=== PATIENT | male | born 1955 | race Caucasian/White ===

== ENCOUNTER 2023-02-19 15:52 | Outpatient (REF) | payer MEDICAID, SELFPAY ==
[2023-02-19 17:42] LABS: MANUAL DIFF FLAG NO
[2023-02-19 17:43] LABS: Appearance Urine Clear; Color Urine Yellow; Glucose Urine UA Negative (Negative); Leukocyte Esterase Urine Trace (Negative); Nitrite Urine Negative (Negative); Specific Gravity - Urine 1.015 (1.005-1.025); UMIC TRIGGER UA YES; Urine Blood Negative (Negative); Urine Ketones Negative (Negative); Urine Protein Negative (Neg-Trace)
[2023-02-19 17:53] LABS: Basophils Absolute Auto 0.1 X10*3/uL (0.0-0.2); Basophils Percent Auto 0.6 % (0-2); Eosinophils Absolute Auto 0.3 X10*3/uL (0.0-0.4); Eosinophils Percent Auto 3.4 % (0-4); Hematocrit 37.7 % (42.0-52.0); Hemoglobin 12.6 g/dl (14.0-18.0); Imm Gran Abs Auto 0.03 X10*3/uL (0.00-0.03); Imm Gran Pct Auto 0.4 % (0.0-0.4); Immature Retic Fraction 5.4 % (2.3-13.4); Lymphocytes Absolute Auto 1.1 X10*3/uL (1.2-4.9); Mean Corpuscular HGB Conc 33.4 g/dl (31.0-36.0); Mean Corpuscular Hemoglobin 32.9 pg (27.0-33.0); Mean Corpuscular Volume 98.4 fL (80.0-98.0); Mean Platelet Volume 9.2 fL (9.4-12.4); Monocytes Absolute Auto 0.6 X10*3/uL (0.1-1.2); Monocytes Percent Auto 7.8 % (2-11); Neutrophils Absolute Auto 6.1 x10*3/uL (2.0-8.3); Neutrophils Percent Auto 74.8 % (45-73); Platelet Count 298 X10*3/uL (160-400); Red Blood Count 3.83 X10*6/uL (4.60-5.80); Red Cell Distribution Width 12.4 % (11.0-16.0); Retic HGB Equivalent 36.4 pg (30.0-35.0); Reticulocyte Percent 1.3 % (0.5-1.8); White Blood Count 8.2 X10*3/uL (4.8-10.8)
[2023-02-19 17:59] LABS: Bacteria Urine Trace (None Seen); Hyaline Casts Urine 0-2 /LPF (0-2); Squamous Epithelial Cell Urine 0-2 /HPF (0-2); WBC Urine 0-5 /HPF (0-5)
[2023-02-19 18:07] LABS: Iron 69 mcg/dL (45-160); Percent Iron Saturation 30 % (15-50); Total Iron Binding Capacity 231 mcg/dL (228-428); Unsaturated Iron Binding 162 ug/dL
[2023-02-19 18:18] LABS: Prostate Specific Antigen 5.29 ng/mL (<0.05-4.0)
[2023-02-19 18:22] LABS: Ferritin 45 ng/mL (20-250)
== END 2023-02-19 15:53 | disposition home or self-care (01) ==
LOC: HO.CHCLDS 15:52
PROVIDERS: Visit Provider Internal Medicine
DX: R30.0 Dysuria (principal); R31.29 Other microscopic hematuria
CPT/HCPCS: 36415; 81001; 82728; 83540; 84153; 85025; 85045

== ENCOUNTER 2023-02-27 08:08 | Outpatient (REF) | payer MEDICAID, SELFPAY ==
[2023-02-28 15:24] LABS: Adenovirus F 40/41 Not Detected (Not Detect.); Astrovirus Not Detected (Not Detect.); Campylobacter Not Detected (Not Detect.); Cryptosporidium Not Detected (Not Detect.); Cyclospora cayetanensis Not Detected (Not Detect.); E. coli EAEC Not Detected (Not Detect.); E. coli EPEC Not Detected (Not Detect.); E. coli ETEC Not Detected (Not Detect.); E. coli STEC Not Detected (Not Detect.); Entamoeba histolytica Not Detected (Not Detect.); Giardia lamblia Not Detected (Not Detect.); Norovirus GI/GII Not Detected (Not Detect.); Plesiomonas shigelloides Not Detected (Not Detect.); Rotavirus A Not Detected (Not Detect.); Salmonella Not Detected (Not Detect.); Sapovirus Not Detected (Not Detect.); Shigella sp./EIEC Not Detected (Not Detect.); Vibrio Not Detected (Not Detect.); Vibrio Cholerae Not Detected (Not Detect.); Yersinia enterocolitica Not Detected (Not Detect.)
== END 2023-02-27 08:09 | disposition home or self-care (01) ==
LOC: HO.CHCLNP 08:08
PROVIDERS: Visit Provider Internal Medicine
DX: K59.1 Functional diarrhea (principal)
CPT/HCPCS: 87177; 87209; 87507

== ENCOUNTER 2023-07-30 15:54 | Outpatient (REF) | payer MEDICARE, MEDICAID, SELFPAY ==
[2023-07-30 17:40] LABS: Lithium 0.42 mmol/L (0.60-1.20)
== END 2023-07-30 15:55 | disposition home or self-care (01) ==
LOC: HO.CHCLDS 15:54
PROVIDERS: Visit Provider Internal Medicine
DX: F31.78 Bipolar disorder, in full remission, most recent episode mixed (principal); Z79.899 Other long term (current) drug therapy
CPT/HCPCS: 36415; 80178

== ENCOUNTER 2023-08-06 15:22 | Outpatient (REF) | payer MEDICARE, MEDICAID, SELFPAY ==
[2023-08-06 16:14] LABS: MANUAL DIFF FLAG NO
[2023-08-06 16:17] LABS: Basophils Percent Auto 0.3 % (0-2); Eosinophils Absolute Auto 0.3 X10*3/uL (0.0-0.4); Eosinophils Percent Auto 2.1 % (0-4); Hematocrit 34.1 % (42.0-52.0); Hemoglobin 11.4 g/dl (14.0-18.0); Imm Gran Abs Auto 0.06 X10*3/uL (0.00-0.03); Imm Gran Pct Auto 0.5 % (0.0-0.4); Lymphocytes Absolute Auto 0.8 X10*3/uL (1.2-4.9); Lymphocytes Percent Auto 6.9 % (20-40); Mean Corpuscular HGB Conc 33.4 g/dl (31.0-36.0); Mean Corpuscular Hemoglobin 31.8 pg (27.0-33.0); Mean Platelet Volume 8.9 fL (9.4-12.4); Monocytes Percent Auto 8.3 % (2-11); Neutrophils Absolute Auto 9.7 x10*3/uL (2.0-8.3); Neutrophils Percent Auto 81.9 % (45-73); Platelet Count 290 X10*3/uL (160-400); Red Blood Count 3.59 X10*6/uL (4.60-5.80); Red Cell Distribution Width 13.2 % (11.0-16.0); White Blood Count 11.9 X10*3/uL (4.8-10.8)
[2023-08-06 17:36] LABS: Anion Gap 10 (12-20); Blood Urea Nitrogen 13 mg/dL (9-16); Carbon Dioxide 26 mmol/L (22-29); Chloride 104 mmol/L (96-108); Estimated Glomerular Filt Rate > 60; Glucose Random 71 mg/dL (60-115); Potassium 3.6 mmol/L (3.3-5.1); Sodium 136 mmol/L (135-145)
[2023-08-06 17:46] LABS: Lithium 0.43 mmol/L (0.60-1.20)
[2023-08-06 17:48] LABS: Free T4 (Free Thyroxine) 0.84 ng/dL (0.71-1.85); Thyroid Stimulating Hormone 2.35 uIU/mL (0.32-4.0)
== END 2023-08-06 15:23 | disposition home or self-care (01) ==
LOC: HO.HHCL 15:22
PROVIDERS: Visit Provider Clinical Nurse Specialist Psychiatric/Mental Health, Child & Adolescent
DX: Z79.899 Other long term (current) drug therapy (principal)
CPT/HCPCS: 36415; 80048; 80178; 84439; 84443; 85025

== ENCOUNTER 2024-01-25 14:01 | Outpatient (REF) | payer MEDICARE, MEDICAID, SELFPAY | END 2024-01-25 14:02 | disposition home or self-care (01) | LOC: HO.HAP 14:01 | PROVIDERS: Visit Provider Internal Medicine | DX: Z46.1 Encounter for fitting and adjustment of hearing aid (principal); H90.3 Sensorineural hearing loss, bilateral | CPT/HCPCS: 92591 ==

== ENCOUNTER 2024-02-01 14:03 | Outpatient (REF) | payer MEDICARE, MEDICAID, SELFPAY | END 2024-02-01 14:04 | disposition home or self-care (01) | LOC: HO.HAP 14:03 | PROVIDERS: Visit Provider Internal Medicine | DX: Z46.1 Encounter for fitting and adjustment of hearing aid (principal); H90.3 Sensorineural hearing loss, bilateral | CPT/HCPCS: V5011; V5020; V5160; V5261; V5275 ==

== ENCOUNTER 2024-02-19 12:36 | Outpatient (REF) | payer MEDICARE, MEDICAID, SELFPAY | END 2024-02-19 12:37 | disposition home or self-care (01) | LOC: HO.HAP 12:36 | PROVIDERS: Visit Provider Internal Medicine | DX: Z46.1 Encounter for fitting and adjustment of hearing aid (principal); H90.3 Sensorineural hearing loss, bilateral | CPT/HCPCS: V5264 ==

== ENCOUNTER 2024-04-12 14:08 | Outpatient (REF) | payer MEDICARE, MEDICAID, SELFPAY | END 2024-04-12 14:09 | disposition home or self-care (01) | LOC: HO.HAP 14:08 | PROVIDERS: Visit Provider Internal Medicine | DX: Z13.89 Encounter for screening for other disorder (principal) ==

== ENCOUNTER 2024-05-24 11:04 | Outpatient (REF) | payer MEDICARE, MEDICAID, SELFPAY ==
--- OUTSIDE RECORDS SUMMARY | 2024-05-24 12:18 | XMS_ITS | Clinical Summary ---
Author Organization [employer] Address [address] [place] [address] [address] [place] [address] Care Team Providers Care Pillowcase Folder Name Role Phone Jorge Wiley MD Primary Care Provider [phone] Allergies No known active allergies Medications loperamide (Imodium) 2 MG capsuleIndicati ons:Functional diarrhea TAKE 1-2 CAPS BY MOUTH IN MORNING, NOON, EVENING, & BEDTIME NEEDED FOR DIARRHEA FOR UP TO 10 DAYS 30 capsule 3 03/23/20 23 Active acetaminophen (Tylenol) 325 MG tablet TAKE 2 TABS EVERY 4 HOURS NEEDED FOR MILD PAIN OR TEMP GREATER THAN 100.5 MAX 4000MG/DAY 07/16/19 24 Active lithium 300 MG capsule Take 1 capsule by mouth 2 times daily. 07/07/19 24 Active Multiple Vitamins-Minera ls (Multivitamin-M inerals) tablet Take 1 tablet by mouth in the morning. 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 30 tablet 11 07/30/19 24 Active clopidogrel (Plavix) 75 MG tabletIndicatio ns:Cerebrovascu lar accident (CVA) due to other mechanism (CMS/HCC),Carot id artery stenosis without cerebral infarction, right,Carotid artery stenosis without cerebral infarction, left TAKE 1 TABLET (75 MG) BY MOUTH IN THE MORNING 90 tablet 3 11/11/19 24 Active ferrous gluconate (Fergon) 324 (37.5 Fe) MG tabletIndicatio ns:Iron deficiency anemia, unspecified TAKE 1 TABLET BY MOUTH DAILY WITH BREAKFAST 90 tablet 1 01/04/20 24 Active tamsulosin (Flomax) 0.4 MG 24 hr capsuleIndicati ons:Dysuria TAKE 1 CAPSULE BY MOUTH EVERY DAY 90 capsule 3 02/25/20 24 Active Aspirin Low Dose 81 MG EC tabletIndicatio ns:Cerebrovascu lar accident (CVA) due to other mechanism (CMS/HCC),Carot id artery stenosis without cerebral infarction, right,Carotid artery stenosis without cerebral infarction, left TAKE 1 TABLET (81 MG) BY MOUTH IN THE MORNING 90 tablet 3 05/02/19 25 Active Aspirin Low Dose 81 MG EC tabletIndicatio ns:Cerebrovascu lar accident (CVA) due to other mechanism (CMS/HCC),Carot id artery stenosis without cerebral infarction, right,Carotid artery stenosis without cerebral infarction, left Take 1 tablet (81 mg) by mouth in the morning. 30 tablet 11 07/30/19 24 025 Discontinued Active Problems Problem Noted Date Diagnosed Date Head and neck cancer 11/23/2019 02/06/2023 Benign prostatic hyperplasia 06/28/2019 Bipolar disorder 08/01/2015 02/06/2023 Chronic obstructive lung disease 08/01/2015 02/06/2023 Encounters Date Type Department Care Team Description 05/05/2024 Refill [facility] [address] [place] [address] Jorge Wiley MD Iron deficiency anemia, unspecified 05/01/2024 Refill [facility] [address] [place] [address] Jorge Wiley MD Cerebrovascular accident (CVA) due to other mechanism (CMS/HCC); Carotid artery stenosis without cerebral infarction, right; Carotid artery stenosis without cerebral infarction, left 02/25/2024 Refill [facility] [address] [place] [address] Jorge Wiley MD Dysuria from Last 3 Months Immunizations Name Administration Dates Next Due Influenza High-dose Quadrivalent Preservative Fr ee 02/12/2023 Social History Tobacco Use Types Packs/Day Years Used Date Smoking Tobacco: Every Day Cigarettes Smokeless Tobacco: Never Tobacco Cessation:Ready to Q uit: Not Asked; Counseling Given: Not Answered Depression Answer Date Recorded Patient Health Questionnaire-9 Score 3 02/19/2023 Patient Health Questionnaire-9 Score 3 02/19/2023 Last PHQ-9: Questionnaire Data Not on file 1 Housing Stability Answer Date Recorded What is your housing situation today? I have binh ramey 02/19/[address] you li ve. Do you have problems with any of the following? None of the above 02/19/2023 Food Insecurity Answer Date Recorded Within the past 12 months, y ou worried that your food would run out before you got money to buy more: Never True 02/19/2023 Within the past 12 months,th e food you bought just didn't last and you didn't have enough money to get more: Never True Transportation Answer Date Recorded In the past 12 months, has l ack of transportation kept you from medical appts, meetings, work or from getting things needed for daily living? No 02/19/2023 Utilities Answer Date Recorded In the past 12 months, has t he electric, gas, oil or water company threatened to shut off services in your home? No 02/19/2023 Depression Answer Date Recorded Patient Health Questionnaire-2 Score 2 02/19/2023 Sex and Gender Information Value Date Recorded Sex Assigned at Male 02/24/2022 10:29 AM EDT Legal Sex Male 10:29 AM EDT Gender Identity Male 02/24/2022 10:29 AM EDT Sexual Orientation Don't know 02/24/2022 10 :29 AM EDT Last Filed Vital Signs Vital Sign Reading Time Taken Comments Blood Pressure 135/81 07/30/2023 2:41 PM EDT Pulse 67 07/30/2023 2:41 PM EDT Temperature 36.3 ??C (97.3 ??F) 07/30/2023 2:41 PM ED T Respiratory Rate 19 07/30/2023 2:41 PM EDT Oxygen Saturation 99% 07/30/2023 2:41 PM EDT Inhaled Oxygen Concentration - - Weight 48.5 kg (107 lb) 07/30/2023 2:41 PM EDT Height 159.4 cm (5' 2.75 ) 07/30/2023 2:41 PM ED T Body Mass Index 19.11 07/30/2023 2:41 PM EDT Plan of Treatment Health Maintenance Due Date Last Done Comments CT Colonography 1956 Colonoscopy 1956 Colorectal Cancer Screening 1956 FIT DNA/Cologuard 1956 FIT 1956 FOBT 1956 Sigmoidoscopy 1956 Pneumococcal Vaccine: 65+ Years (1 of 2 - PCV) 1962 Alcohol/Substance Use Screening 1968 DTaP/Tdap/Td Vaccines (1 - Tdap) 09/17/1975 RSV Patients and Patients Aged 60 years or older (1 - Risk 60-74 years 1-dose series) 2016 Zoster Vaccines (2 of 3) 05/07/2017 03/12/2017 COVID-19 Vaccine (2 - season) 2023 10/14/2020 Influenza Vaccine (#1) 2023 , 03/25/2022, 02/09/2021, Additional history exists Depression Screening 02/20/2024 02/19/2023, 02/20/20 23 SDOH Screening 02/20/2024 02/19/2023 Tobacco Screening 07/02/2024 07/03/2023 Lipid Panel 01/28/2027 01/28/2022 Hepatitis C Screening Completed 01/28/2022 HIB Vaccines Aged Out No longer eligi ble based on patient's age to complete this topic HPV Vaccines Aged Out No longer eligi ble based on patient's age to complete this topic Hepatitis A Vaccines Aged Out No long er eligible based on patient's age to complete this topic Hepatitis B Vaccines Aged Out No long er eligible based on patient's age to complete this topic IPV Vaccines Aged Out No longer eligi ble based on patient's age to complete this topic Meningococcal Vaccine Aged Out No cristy vargas eligible based on patient's age to complete this topic RSV under 20 months Aged Out No longe r eligible based on patient's age to complete this topic Rotavirus Vaccines Aged Out No longer eligible based on patient's age to complete this topic Procedures Procedure Name Priority Date/Time Associated Diagnosis Comments ZZZ HISTORICAL HEPATITIS C AB W/REFL TO HCV RNA, QN, PCR Routine 01/28/2022 9:08 AM EDT LIPID PANEL, STANDARD Routine 01/28/2022 9:08 AM EDT from Last 3 Months or Most Recently Relevant to Health Maintenance Results * HEPATITIS C AB W/REFL TO HCV RNA, QN, PCR (01/28/2022 9:08 AM EDT) HEPATITIS C ANTIBODY NON-REACTI VE NON-REACT CARLOS CONVERTED LEGACY LABS INDEX <0.02 <1.00 CONVERTED LEGACY LABS Comment: ?? HCV antibody was non-reactive. There is no laboratory ?? evidence of HCV infection. ?? In most cases, no further action is required. However, if recent HCV exposure is suspected, a test for HCV RNA (test code 12371) is suggested. ?? For additional information please refer to http://[employer].The Runthrough/faq/SFA04h8 (This link is being provided for informational/ educational purposes only.) ?? 01/28/2022 9:08 AM EDT us Jorge Wiley MD HISTORICAL/NON ORDERABLE POOJA CHENG Final Result CONVERTED LEGACY LABS * LIPID PANEL, STANDARD (01/28/2022 9:08 AM EDT) Chol/HDLC Ratio 2.7 <5.0 (calc) CONVERTED LEGACY LABS Cholesterol, Total 170 <200 mg/dL CONVERTED LEGACY LABS HDL Cholesterol 62 > OR = 40 mg/dL CONVERTED LEGACY LABS LDL Cholesterol 91 mg/dL (calc) CONVERTED LEGACY LABS Comment: Reference range: <100 ?? Desirable range <100 mg/dL for primary prevention; ?? <70 mg/dL for patients with CHD or diabetic patients ?? with > or = 2 CHD risk factors. ?? LDL-C is now calculated using the Drake ?? calculation, which is a validated novel method providing ?? better accuracy than the Friedewald equation in the ?? estimation of LDL-C. ?? Benjamin PARRISH et al. YESI. 2013;310(19): 2917-7705 ?? (http://education.[employer].Intellikine/faq/LCI783) Non-HDL Cholesterol 108 <130 mg/dL (calc) CONVERTED LEGACY LABS Comment: For patients with diabetes plus 1 major ASCVD risk ?? factor, treating to a non-HDL-C goal of <100 mg/dL ?? (LDL-C of <70 mg/dL) is considered a therapeutic ?? option. Triglycerides 81 <150 mg/dL CONVE RTED LEGACY LABS 01/28/2022 9:08 AM EDT us Jorge Wiley MD LAB BLOOD ORDERABLES Final Result CONVERTED LEGACY LABS from Last 3 Months or Most Recently Relevant to Health Maintenance Insurance [facility]LY [facility] MEDICARE Care Teams Pillowcase Folder Relationship Specialty Start Date End Date Jorge Wiley MD [address] [place] [address] LAURENT Bravo [id number] PCP - General Internal Medicine 08/01/15
--- OUTSIDE RECORDS SUMMARY | 2024-05-24 12:18 | XMS_ITS | Encounter Summary ---
Author Organization [employer] Address [address] [facility] [address] [place] [address] Care Team Providers Care Medical Operations Supervisor Name Role Phone Jorge Wiley MD Primary Care Provider [phone] Encounter Details Date Type Department Care Team (Late st Contact Info) Description 04/03/2022 Orders Only [facility] [address] [place], [place] [phone] Jorge Wiley MD [address] [place], [place] [phone] Microcytic anemia (Primary Dx) Social History Tobacco Use Types Packs/Day Years Used Date Smoking Tobacco: Never Assessed Sex and Gender Information Value Date Recorded Sex Assigned at Male 02/24/2022 10:29 AM EDT Legal Sex Male 10:29 AM EDT Gender Identity Male 02/24/2022 10:29 AM EDT Sexual Orientation Don't know 02/24/2022 10 :29 AM EDT documented as of this encounter Plan of Treatment Scheduled Orders Name Type Priority Associated Diagnoses Orde r Schedule Iron, TIBC And Ferritin Panel Lab Routine Microcytic anemia Expected: 04/03/2022 (Approximate), Expires: 04/03/2023 documented as of this encounter Visit Diagnoses Diagnosis Microcytic anemia- Primary Unspecified iron deficiency anemia documented in this encounter Care Teams Medical Operations Supervisor Relationship Specialty Start Date End Date Jorge Wiley MD [address] [place], [place] [phone] PCP - General Internal Medicine 08/01/15 documented as of this encounter
--- OUTSIDE RECORDS SUMMARY | 2024-05-24 12:18 | XMS_ITS | Encounter Summary ---
Author Organization [employer] Address [address] [facility] [address] [place] [address] Care Team Providers Care Die Stamper Name Role Phone Jorge Wiley MD Primary Care Provider Reason for Visit * Reason Onset Date Comments Call Back Request 08/07/2023 Encounter Details Date Type Department Care Team ([facility] Contact Info) Description 08/07/2023 Telephone [facility] [address] [place] [address] Jorge Wiley MD [address] [place], [place] [phone] Call Back Request Social History Tobacco Use Types Packs/Day Years Used Date Smoking Tobacco: Every Day Cigarettes Smokeless Tobacco: Never Depression Answer Date Recorded Patient Health Questionnaire-9 [...] AM EDT documented as of this encounter Miscellaneous Notes * Telephone Encounter - Wing Madhavi RN - 08/07/2023 2:18 PM EDT Tc to [facility]. She stated she was trying to fax something back for clarification but the fax number provided was incorrect. But stated she is now all set since someone called her this morning and helped her out. * Telephone Encounter - Estefania Mckenzie - 08/07/2023 8:42 AM EDT Tc from [facility] with [facility] requesting to speak with a nurse or [place] in regards to labs faxed. States it is urgent. Please contact rocky at [phone] documented in this encounter Plan of Treatment Not on file documented as of this encounter Visit Diagnoses Not on filedocumented in this encounter Additional Health Concerns Assessment Noted Time PHQ-9 Depression Total Score: 3 02/20/20 23 3:12 PM EDT documented as of this encounter Care Teams Die Stamper Relationship Specialty Start Date End Date Jorge Wiley MD [address] [place] [address] LAUR[place] Bravo [id number] PCP - General Internal Medicine 08/01/15 documented as of this encounter
--- OUTSIDE RECORDS SUMMARY | 2024-05-24 12:18 | XMS_ITS | Encounter Summary ---
Author Organization [employer] Address [address] [facility] [address] [place] [address] Care Team Providers Care Fiberglass Autobody Repairer Name Role Phone Jorge Wiley MD Primary Care Provider Encounter Details Date Type Department Care Team (Late st Contact Info) Description 01/12/2024 Orders Only [facility] [address] [place], [place] [phone] ProviderRandall MD Social History Tobacco Use Types Packs/Day Years [...] as of this encounter Plan of Treatment Not on file documented as of this encounter Procedures Procedure Name Priority Date/Time Associated Diagnosis Comments FLU VACCINE, HIGH DOSE SEASONAL, PRESERVATIVE FREE Routine 01/10/2024 3:00 PM EDT SARS-COV-2 IGG/IGM RAPID Routine 024 2:57 PM EDT documented in this encounter Results * Flu vaccine, high dose seasonal, preservative free (01/10/2024 3:00 PM EDT) Historical Provider IMMUNIZATION ORDERABLES F inal Result * SARS-CoV-2 IgG/IgM Rapid (01/10/2024 2:57 PM EDT) Blood Venous blood specimen / Unknown us Historical Provider LAB BLOOD ORDERABLES Judy l Result documented in this encounter Visit Diagnoses Not on filedocumented in this encounter Additional Health Concerns Assessment Noted Time PHQ-9 Depression Total Score: 3 02/20/20 23 3:12 PM EDT documented as of this encounter Care Teams Fiberglass Autobody Repairer Relationship Specialty Start Date End Date Jorge Wiley MD [address] [place] [id number] PCP - General Internal Medicine 08/01/15 documented as of this encounter
--- OUTSIDE RECORDS SUMMARY | 2024-05-24 12:18 | XMS_ITS | Encounter Summary ---
Author Organization [employer] Address [address] [facility] [address] [place] [address] Care Team Providers Care Mining Plant Operator Name Role Phone Jorge Wiley MD Primary Care Provider Encounter Details Date Type Department Care Team (Late st Contact Info) Description 02/23/2023 Orders Only [facility] [address] [place], [place] [phone] Jorge Wiley MD [address] [place], [place] [phone] Benign prostatic hyperplasia with incomplete bladder emptying (Primary Dx); Other microscopic hematuria; Microcytic anemia; Functional diarrhea Social History Tobacco Use Types Packs/Day Years [...] Type Priority Associated Diagnoses Orde r Schedule CBC auto differential Lab Routine Microcytic anemia Expected: 02/23/2023 (Approximate), Expires: 02/24/2024 documented as of this encounter Visit Diagnoses Diagnosis Benign prostatic hyperplasia with incomplete bladder emptying- Primary Other microscopic hematuria Microcytic anemia Unspecified iron deficiency anemia Functional diarrhea documented in this encounter Additional Health Concerns Assessment Noted Time PHQ-9 Depression Total Score: 3 02/20/20 23 3:12 PM EDT documented as of this encounter Care Teams Mining Plant Operator Relationship Specialty Start Date End Date Jorge Wiley MD [address] [place] [id number] PCP - General Internal Medicine 08/01/15 documented as of this encounter
--- OUTSIDE RECORDS SUMMARY | 2024-05-24 12:18 | XMS_ITS | Encounter Summary ---
Author Organization [facility] [employer] Address [address] [place] [address] [address] [place] [address] Care Team Providers Care Flatwork Folder Name Role Phone Jorge Wiley MD Primary Care Provider Encounter Details Date Type Department Care Team (Late st Contact Info) Description 02/13/2023 Abstract [employer] [facility] [address] [place], [place] [phone] Jorge Wiley MD [address] [place], [place] [phone] Social History Tobacco Use Types Packs/Day Years Used Date Smoking Tobacco: Every Day Cigarettes Smokeless Tobacco: Never Sex and Gender Information Value Date Recorded Sex Assigned at Male 02/24/2022 10:29 AM EDT Legal Sex Male 10:29 AM EDT Gender Identity Male 02/24/2022 10:29 AM EDT Sexual Orientation Don't know 02/24/2022 10 :29 AM EDT documented as of this encounter Plan of Treatment Not on file documented as of this encounter Visit Diagnoses Not on filedocumented in this encounter Care Teams Flatwork Folder Relationship Specialty Start Date End Date Jorge Wiley MD [address] [place] [address] PCP - General Internal Medicine 08/01/15 documented as of this encounter
--- OUTSIDE RECORDS SUMMARY | 2024-05-24 12:18 | XMS_ITS | Data Portability ---
Author Organization [place] - [facility] Formerly [facility], Allergy Address [address] [address] Care Team Providers Care Room Service Associate Name Role Phone HEIDIIVÁN TOMLINSON Primary Care Provider [phone] Assessment Encounter Date Assessment Date Assessment LastModified by Organization Details LastModified Time 01/15/2024 01/15/2024 Recommendations: Follow up with referring provider. Amplification, pending medical clearance. [email or web address] Not available 01/15/2024 14:06:00 01/15/2024 01/15/2024 68-year-old male presents for evaluation of hearing loss. On examination right EAC is normal to inspection as his TM. On the left side there is squamous impaction removed from the inferior canal. There is an inferior canal divot with good epithelialization and no granulation. TM normal to inspection. Given concerns about hearing loss would recommend updated hearing test today. There is sensorineural hearing loss bilaterally. He would be an excellent candidate for amplification. He was given a copy of his hearing test and medical clearance for bilateral aids. Was also provided with [facility] provider sheet. Follow-up in 6 months for ear cleaning. Not available 01/15/2024 15:04:04 Plan of Treatment Reminders Order Date Submit Date Provider Last Modified By Organization Details Last Modified Time Details Appointments Establish ed 15 2024 01:15P Deborah QUIÑONEZ PA-C Not available Not available Not available Lab None recorded. Referral None recorded. Procedures None recorded. Surgeries None recorded. Imaging None recorded. Medication Orders None recorded. Patient TargetsNo targets recorded. Patient InstructionsNo instructions recorded. Reason for Referral None Reported. Results Created Date Observation Date Name Description Value Unit Range Abnormal Flag Note LastModifiedBy Organization Detail LastModifiedTime 12/17/19 24 05/22/2020 imagi ng/di agnos tic resul t No observ ation record ed. [email or web address] Not Available 12:44:49 12/17/19 24 10/24/2019 imagi ng/di agnos tic resul t No observ ation record ed. [email or web address] Not Available 12:45:04 12/17/1911/01/2019 imagi ng/di agnos tic resul t No observ ation record ed. [email or web address] Not Available 12:45:07 12/17/19 24 11/23/2019 imagi ng/di agnos tic resul t No observ ation record ed. [email or web address] Not Available 12:45:10 12/17/19 24 12/15/2019 imagi ng/di agnos tic resul t No observ ation record ed. [email or web address] Not Available 12:45:33 12/17/19 24 12/22/2019 imagi ng/di agnos tic resul t No observ ation record ed. [email or web address] Not Available 12:45:34 01/18/20 audio gram No observ ation record ed. BARCODE Not Available 2023 16:40:32 Result Notes None recorded. Problems Name Problem SNOMED Code Status Onset Date Resolution Date Notes Provider Name and Address Organization Details Recorded Time Impacted cerumen of bilateral ears 83844959531 41029 Active 2019 Impacted cerumen, bilateral ; Note: Date Diagnosed : 12/13/2019 12:30 PM (H61.23) Not Available [facility] 4 02:49:51 Follow-up visit Active 2020 Encounter for follow-up examinati on after completed treatment for malignant neoplasm; Note: Date Diagnosed : 06/21/2020 9:33 AM (Z08) Not Available [facility] 4 02:49:48 Sensorine ural hearing loss of bilateral ears 802473184 Active 2019 Sensorine ural hearing loss, bilateral ; Note: Date Diagnosed : 12/22/2019 4:02 PM (H90.3) Not Available [facility] 4 02:49:49 Malignant tumor of head and neck 208835836 Active 2019 Malignant neoplasm of head, face and neck; Note: Date Diagnosed : 11/30/2019 11:25 AM (C76.0) Not Available [facility] 4 02:49:49 Otorrhea of left ear 83913661890 36836 Active 2022 Otorrhea, left ear; Note: Date Diagnosed : 01/05/2023 3:29 PM (H92.12) Not Available [facility] 4 02:49:50 Nicotine dependenc e 03091880 Active 2020 Tobacco use disorder, moderate; Note: Date Diagnosed : 06/20/2020 9:38 AM (F17.200) Not Available [facility] 4 02:49:45 History of malignant neoplasm of digestive organ 95382495321 655342 Active 2020 Personal history of malignant neoplasm of other digestive organs; Note: Date Diagnosed : 06/20/2020 9:38 AM (Z85.09) Not Available [facility] 4 02:49:47 Mass of neck 766629924 Active 2019 Localized swelling, mass and lump, neck; Note: Date Diagnosed : 11/30/2019 11:25 AM (R22.1) Not Available [facility] 4 02:49:46 Neck swelling 740222353 Active 2019 Localized swelling, mass and lump, neck; Note: Date Diagnosed : 11/30/2019 11:25 AM (R22.1) Not Available [facility] 4 02:49:46 Deviated nasal septum 409806491 Active 2022 Deviated nasal septum; Note: Date Diagnosed : 10/03/2022 1:33 PM (J34.2) Not Available [facility] 4 02:49:44 Stomatiti s 22638133 Active 2020 Oral thrush; Note: Date Diagnosed : 06/20/2020 9:38 AM (B37.0) Not Available [facility] 4 02:49:46 Candidias is of mouth 82844091 Active 2020 Oral thrush; Note: Date Diagnosed : 06/20/2020 9:38 AM (B37.0) Not Available [facility] 02:49:46 Impacted cerumen in left ear 74737205689 07577 Active 2023 DALTON QUIÑONEZ PA-C [address],[place] [address], [place], [address] , [facility] - [facility] 4 14:05:38 Disorder of external ear 23442223 Active 2023 DALTON QUIÑONEZ PA-C [address],[place] [address], [place], [address] , [facility] - [facility] 4 14:06:06 Problem Notes None recorded. Procedures Surgical History Date Name Laterality Status Provider Name and Address Organization Details Recorded Time 4 Comp Audio with Tymps (46057 & 84032) completed CLOTILDE MATHEW [address],[place] [address], [place], [address], [facility] - [facility] 01/15/2024 14:05:04 Debridement of Ear canal left completed DALTON QUIÑONEZ PA-C [address] [facility] [place] [address], [place], [address], [facility] - [facility] 01/15/2024 14:04:23 Imaging Results Imaging Date Name Status LastModified by Organiz ation Details LastModified Time 05/22/2020 imaging/diagno stic result completed Information not available 12/17/2023 12:44:49 10/24/2019 imaging/diagno stic result completed Information not available 12/17/2023 12:45:04 11/01/2019 imaging/diagno stic result completed Information not available 12/17/2023 12:45:07 11/23/2019 imaging/diagno stic result completed Information not available 12/17/2023 12:45:10 12/15/2019 imaging/diagno stic result completed Information not available 12/17/2023 12:45:33 12/22/2019 imaging/diagno stic result completed Information not available 12/17/2023 12:45:34 01/18/2024 audiogram completed BARCODE Information no t available 01/18/2024 16:40:32 Procedure Notes None recorded. Medical Equipment None Reported. Medications Name Sig Start Date Stop Date Status Note LastModified by Organization Details LastModified Time cyclobenz aprine 10 mg tablet 2019 active Medicati on ID: [id number] D uration Value: 5 Brand Name: cycloben zaprine Send Method: E-Prescr ibed Sub s Allowed: subs OK Speci al Instruct ion: TAKE 1 TABLET BY MOUTH EVERY 8 HOURS NEEDED FOR MUSCLE SPASM Me dication GenericN jaylon: cycloben zaprine Not Available Not Available Not Available clotrimaz ole 10 mg chandler 1 chandler 2020 active Medicati on ID: [id number] D uration Value: 7 Brand Name: clotrima zole Sen d Method: E-Prescr ibed Sub s Allowed: subs OK Medic ationGen ericName : clotrima zole Not Available Not Available Not Available atorvasta tin 80 mg tablet TAKE 1 TABLET BY MOUTH AT BEDTIME active Not Available Not Available No t Available acetamino phen 325 mg tablet TAKE 2 TABS EVERY 4 HOURS NEEDED FOR MILD PAIN OR TEMP GREATER THAN 100.5 MAX 4000MG/D AY 01/14 completed Not Available Not Available Not Available doxycycli ne hyclate 100 mg capsule TAKE 1 CAPSULE BY MOUTH TWICE A DAY FOR 7 DAYS 01/14 completed Not Available Not Available Not Available loperamid e 2 mg capsule TAKE 1-2 CAPS BY MOUTH IN MORNING, NOON, EVENING, & BEDTIME NEEDED FOR DIARRHEA FOR UP TO 10 DAYS active Not Available Not Available No t Available clopidogr el 75 mg tablet TAKE 1 TABLET (75 MG) BY MOUTH IN THE MORNING active Not Available Not Available No t Available aspirin 81 mg tablet,de layed release TAKE 1 TABLET (81 MG) BY MOUTH IN THE MORNING 01/14 completed Not Available Not Available Not Available tamsulosi n 0.4 mg capsule TAKE 1 CAPSULE BY MOUTH EVERY DAY active Not Available Not Available No t Available lithium carbonate 300 mg capsule TAKE 2 CAPSULES BY MOUTH TWICE A DAY active Not Available Not Available No t Available Banophen 25 mg tablet 2019 active Medicati on ID: [id number] D uration Value: 3 Brand Name: Banophen Send Method: E-Prescr ibed Sub s Allowed: subs OK Speci al Instruct ion: TAKE 2 TABLETS BY MOUTH EVERY 8 HOURS NEEDED FOR SLEEP Me dication GenericN jaylon: Banophen Not Available Not Available Not Available omeprazol e 20 mg capsule,d elayed release 2019 active Medicati on ID: [id number] D uration Value: 30 Brand Name: omeprazo le Send Method: E-Prescr ibed Sub s Allowed: subs OK Speci al Instruct ion: TAKE 1 CAPSULE BY MOUTH TWICE A DAY BEFORE A MEAL Med icationG enericNa me: omeprazo le Not Available Not Available Not Available naproxen 500 mg tablet 2019 active Medicati on ID: [id number] D uration Value: 8 Brand Name: naproxen Send Method: E-Prescr ibed Sub s Allowed: subs OK Speci al Instruct ion: TAKE 1 TABLET BY MOUTH EVERY 12 HOURS NEEDED FOR PAIN Med icationG enericNa me: naproxen Not Available Not Available Not Available Ciprodex 0.3 %-0.1 % ear drops,hipolito pension APPLY 4 DROP INTO LEFT EAR TWICE A DAY 01/14 completed Not Available Not Available Not Available ferrous gluconate 324 mg (38 mg iron) tablet TAKE 1 TABLET BY MOUTH WITH BREAKFAS T. 01/14 completed Not Available Not Available Not Available ferrous gluconate 324 mg (37.5 mg iron) tablet TAKE 1 TABLET BY MOUTH DAILY WITH BREAKFAS T active Not Available Not Available No t Available multivita min with minerals- ferrous fumarate 15 mg iron tablet TAKE 1 TABLET BY MOUTH EVERY DAY active Not Available Not Available No t Available Vitals Date Recorded Body height Body mass index (BMI) Body weight Provider Name and Address Organization Details Last Updated DateTime 01/15/2024 160.02 cm 18.1 kg/m2 19143.42 g Sia Barksdale [place] - [facility] 01/15/2024 13:21:07 Social History None recorded. Functional Status None recorded. Mental Status None recorded. Family History Nothing Reported. Medical History No medical history recorded. Past Encounters Encounter ID Performer Location Encounter Start Date Encounter Closed Date Diagnosis/Indication Diagnosis SNOMED-CT Code Diagnosis ICD10 Code Diagnosis Note [id number] YOSSI ESPAÑA MD [facility] [address] [place] [address] 01/15/2024 13:09:17 01/15/2024 14:33:31 Impacted cerumen in left ear 3355109996 447295 H61.22 Disorder o f external ear 93118137 H61.92 History of malignant neoplasm of digestive organ 5533126967 9455605 Z85.09 [id number] CLOTILDE MATHEW [facility] [address] [place] [address] 01/15/2024 14:02:49 01/18/2024 07:06:56 Sensorineural hearing loss of bilateral ears 076101774 H90.3 Audiologic al evaluation results: Right ear: {{Normal sloping Mi ld* Modera te Moderat maryam-severe Severe Pr ofound Nor mal auditory thresholds }} to {{mild mod erate mode rately-sev ere severe profound* with}} {{sensorin eural hearing loss with* cond uctive hearing loss with mixed hearing loss with}} {{excellen t good dru r poor* no t measurable }} word recognitio n. Left ear: {{Normal sloping Mi ld* Modera te Moderat maryam-severe Severe Pr ofound Nor mal auditory thresholds }} to {{mild mod erate mode rately-sev ere severe profound* with}} {{sensorin eural hearing loss with* cond uctive hearing loss with mixed hearing loss with}} {{excellen t* good fa ir poor no t measurable }} word recognitio n. Tympanomet ry: Right Ear:{{Type A* Type As Type Ad Type C Type C, shallow & rounded Ty pe B Type B with large volume Cou ld not maintain a hermetic seal}} Left Ear:{{Type A* Type As Type Ad Type C Type C, shallow & rounded Ty pe B Type B with large volume Cou ld not maintain a hermetic seal}} Health Concerns Section Related Observation LastModified by Organization Detai ls LastModified Time None Recorded Concern Status LastModified by Organization Details LastModified Time None Recorded Advance Directives Directive None Recorded Payers Encounter Date Sequence Insurance Name Policy Number Policy Fink Covered Member ID Fink Member ID Guarantor Name 01/15/2024 1 [place] [employer] Francisco J Patel [id number] Francisco J Patel 01/15/2024 2 [place] Francisco J Patel [id number] Francisco J Patel 01/15/2024 1 [place] [employer] Francisco J Patel [id number] Francisco J Patel 01/15/2024 2 [place] Francisco J Patel [id number] Francisco J Patel Notes Date Note Type Note Provider Name and Address Organization Details Recorded Time 01/15/2024 text/html 68-year-old male with 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 He had a PET scan last year which was clear and no further imaging recommended by radiation oncology. He presents today for a hearing test. He has a history of sensorineural hearing loss but feels his hearing is getting worse. YOSSI ESPAÑA MD [address] [place] [address], [address], [place] - [facility] 01/15/2024 16:42:39 01/15/2024 text/html Audiological Evaluation HPIReported bypatient.Hearing loss perceived:hearing loss in both ears: no differences noted between ears Onset:gradual Use of amplification or other hearing devices:none (does not use amplification) CLOTILDE MATHEW [address], [address], [place] - [facility] 01/15/2024 14:11:04
--- OUTSIDE RECORDS SUMMARY | 2024-05-24 12:18 | XMS_ITS | Encounter Summary ---
Author Organization [facility] Address [address] [place] [address] Care Team Providers Care Rural Mail Contractor Name Role Phone Jorge Wiley MD Primary Care Provider [phone] Encounter Details Date Type Department Care Team Description 12/12/2019 Nurse Only [facility] Oncology Services [address] [place] [address] Abner Umana RN Social History Tobacco Use Types Packs/Day Years Used Date Smoking Tobacco: Some Days Cigarettes 1 45 Cigars Smokeless Tobacco: Never Comments: plans on quitting today Alcohol Use Standard Drinks/Week Comments No 0 (1 standard drink = 0.6 oz pur e alcohol) Sex and Gender Information Value Date Recorded Sex Assigned at Not on file Gender Identity Not on file Sexual Orientation Not on file Job Start Date Occupation Industry Not on file Not on file Not on file documented as of this encounter Progress Notes * Abner Umana RN - 12/12/2019 11:51 AM EDT Appointment for g-tube placement is booked for 12/16/2019 arrival at 8am procedure is at 9am . Spokewith robert Gaspar she is aware of all instructions prior to procedure. She reports a Covid test was done on Thursday for [facility] ENT prior to biopsy tomorrow. She stated it will be a hard for the family to redo another Covid test as Mr. 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 Will do a rapid test on day of procedure per IR orders sent to [facility]-op. documented in this encounter Plan of Treatment Not on file documented as of this encounter Visit Diagnoses Not on filedocumented in this encounter Care Teams Rural Mail Contractor Relationship Specialty Start Date End Date Jorge Wiley MD [address] [place] [address] PCP - General Internal Medicine 04/08/22 documented as of this encounter
--- OUTSIDE RECORDS SUMMARY | 2024-05-24 12:19 | XMS_ITS | Encounter Summary ---
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/HCC); Carotid artery stenosis without cerebral infarction, right; Carotid artery stenosis without cerebral infarction, left Social History Tobacco Use Types Packs/Day Years [...] as of this encounter Visit Diagnoses Diagnosis 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
--- OUTSIDE RECORDS SUMMARY | 2024-05-24 12:19 | XMS_ITS | Encounter Summary ---
Author Organization [employer] Address [address] [facility] [address] [place] [address] Care Team Providers Care Physician Primary Care Sports Medicine Name Role Phone Jorge Wiley MD Primary Care Provider Reason for Visit * Reason Onset Date Comments FYI 07/13/2023 Encounter Details Date Type Department Care Team ([facility] st Contact Info) Description 07/13/2023 Telephone [facility] MEDICINE [address] [place], [place] [phone] Jorge Wiley MD [address] [place], [place] [id number] FYI Social History Tobacco Use Types Packs/Day Years [...] Telephone Encounter - Wing Madhavi RN - 07/13/2023 4:00 PM EDT Tc to pt regarding previous message. Unable to reach pt, mailbox was full so no message could be left. * Telephone Encounter - Maykel Hicks - 07/13/2023 3:24 PM EDT Tc from the patients sister Blanca calling to inform the provider that the patient is not able to come to the appt on 07/12 due to having a mini stroke and it effected the patients right arm documented in this encounter Plan of Treatment Not on file documented as of this encounter Visit Diagnoses Not on filedocumented in this encounter Additional Health Concerns Assessment Noted Time PHQ-9 Depression Total Score: 3 02/20/20 23 3:12 PM EDT documented as of this encounter Care Teams Physician Primary Care Sports Medicine Relationship Specialty Start Date End Date Jorge Wiley MD [address] [place] [address] PCP - General Internal Medicine 08/01/15 documented as of this encounter
--- OUTSIDE RECORDS SUMMARY | 2024-05-24 12:19 | XMS_ITS | Encounter Summary ---
Author Organization [facility] Address [address] [place] [address] Care Team Providers Care Business Technology Analyst Name Role Phone Jorge Wiley MD Primary Care Provider [phone] Encounter Details Date Type Department Care Team Description 05/25/2020 Nurse Only [facility] Oncology Services [address] [place] [address] Abner Umana RN Social History Tobacco Use [...] file Not on file Not on file COVID-19 Exposure Response Date Recorded In the last month, have you been in contact with someone who was confirmed or suspected to have Coronavirus / COVID-19? No / Unsure 05/25/2020 2:11 PM EST documented as of this encounter Progress Notes * Abner Umana RN - 05/25/2020 3:55 PM EST Patient saw Dr. Mattson today, ok to remove the g-tube. Balloon deflated but tube appears stuck, not small amount of blood at stoma patient reported it painful when pulling. Called IR and OR tech came to see patient, she attempted to remove the tube but was not successful, Dr. Walter came to deptand removed the tube no bleeding noted at the end of the procedure. documented in this encounter Plan of Treatment Not on file documented as of this encounter Visit Diagnoses Not on filedocumented in this encounter Care Teams Business Technology Analyst Relationship Specialty Start Date End Date Jorge Wiley MD [address] [place] [address] PCP - General Internal Medicine 04/08/22 documented as of this encounter
--- OUTSIDE RECORDS SUMMARY | 2024-05-24 12:19 | XMS_ITS | Encounter Summary ---
Author Organization [employer] Address [address] [facility] [address]t [place] [address] Care Team Providers Care Accordion Tuner Name Role Phone Jorge Wiley MD Primary Care Provider Reason for Visit * Reason Comments Med Refill Encounter Details Date Type Department Care Team ([facility] st Contact Info) Description 05/05/2024 Refill [facility] CHC MED & PEDS [address] [place], [place] [phone] Jorge Wiley MD [address] [place], [place] [phone] Iron deficiency anemia, unspecified Social History Tobacco Use Types Packs/Day Years [...] as of this encounter Visit Diagnoses Diagnosis Iron deficiency anemia, unspecified documented in this encounter Additional Health Concerns Assessment Noted Time PHQ-9 Depression Total Score: 3 02/20/20 23 3:12 PM EDT documented as of this encounter Care Teams Accordion Tuner Relationship Specialty Start Date End Date Jorge Wiley MD [address] [place] [address] PCP - General Internal Medicine 08/01/15 documented as of this encounter
--- OUTSIDE RECORDS SUMMARY | 2024-05-24 12:19 | XMS_ITS | Clinical Summary ---
Author Organization [facility] Address [address] [place] [address] Care Team Providers Care Service Desk Technician Name Role Phone Jorge Wiley MD Primary Care Provider [phone] Allergies No known active allergies Medications Medication Sig Dispensed Refills Start Date End Date Status lithium 600 MG capsule Take 600 mg by mouth 2 (two) times a day with meals. 0 Active tamsulosin (FLOMAX) 0.4 MG CAPS Take 1 capsule (0.4 mg total) by mouth daily. 0 Active Active Problems Problem Noted Date Diagnosed Date Head and neck cancer 11/23/2019 Family History Relation Name Status Comments Father Mother Sister Alive Social History Tobacco Use Types Packs/Day Years [...] file Not on file Not on file Last Filed Vital Signs Vital Sign Reading Time Taken Comments Blood Pressure 119/75 04/08/2022 1:46 PM EST Pulse 65 04/08/2022 1:46 PM EST Temperature 37.1 ??C (98.8 ??F) 04/08/2022 1:46 PM ES T Respiratory Rate - - Oxygen Saturation 100% 04/08/2022 1:46 PM EST Inhaled Oxygen Concentration - - Weight 48.4 kg (106 lb 12.8 oz) 04/08/2022 1:46 PM EST Height 160 cm (5' 3 ) 04/08/2022 1:46 PM EST Body Mass Index 18.92 04/08/2022 1:46 PM EST Plan of Treatment Health Maintenance Due Date Last Done Comments Hepatitis C Screening 1955 Lung Cancer Screening (Low D ose CT) 1956 COVID-19 Vaccine (#1) 1961 Pneumococcal Vaccine (1 of 2 - PCV) 1962 Depression Screening 1968 Preventative Health Evaluation 1974 DTap / Tdap / Td (1 - Tdap) 09/17/1975 Shingrix-Zoster Vaccine (1 of 2) 09/17/1975 Colon Cancer Screening (Colonoscopy) 2001 Fall Risk Assessment 2021 Influenza Vaccine (#1) 2023 02/12/2023 RSV Adult > 60+ Yrs or Pregn ant (1 - 1-dose 75+ series) 09/17/2031 Hepatitis B Vaccines Aged Out No long er eligible based on patient's age to complete this topic RSV Ped < 20 months Aged Out No longe r eligible based on patient's age to complete this topic Care Teams Service Desk Technician Relationship Specialty Start Date End Date Jorge Wiley MD [address] [place] [address] PCP - General Internal Medicine 04/08/22
== END 2024-05-24 11:05 | disposition home or self-care (01) ==
LOC: HO.HAP 11:04
PROVIDERS: Visit Provider Internal Medicine
DX: Z13.89 Encounter for screening for other disorder (principal)

== ENCOUNTER 2024-08-23 14:02 | Outpatient (REF) | payer MEDICARE, MEDICAID, SELFPAY ==
--- OUTSIDE RECORDS SUMMARY | 2024-08-23 16:17 | XMS_ITS | Clinical Summary ---
Author Organization [employer] Address [address] [place] [address] 7t [place] [address] Care Team Providers Care Leakage Tester Name Role Phone Jorge Wiley MD Primary Care Provider [phone] Allergies No known active allergies Medications loperamide [...] mouth in the morning. 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 (CMS/HCC),Carot id artery stenosis without cerebral infarction, right,Carotid artery stenosis without cerebral infarction, left TAKE 1 TABLET (75 MG) BY MOUTH IN THE MORNING 90 tablet 3 11/11/19 24 Active tamsulosin (Flomax) 0.4 MG 24 [...] MORNING 90 tablet 3 05/02/19 25 Active ferrous gluconate (Fergon) 324 (37.5 Fe) MG tabletIndicatio ns:Iron deficiency anemia, unspecified TAKE 1 TABLET BY MOUTH DAILY WITH BREAKFAST 90 tablet 1 08/02/19 25 Active atorvastatin (Lipitor) 80 MG tabletIndicatio ns:Cerebrovascu lar accident (CVA) due to other mechanism (CMS/HCC),Carot id artery stenosis without cerebral infarction, right,Carotid artery stenosis without cerebral infarction, left TAKE 1 TABLET BY MOUTH AT BEDTIME 90 tablet 3 08/11/19 25 Active atorvastatin (Lipitor) 80 MG tabletIndicatio ns:Cerebrovascu lar accident (CVA) due to other mechanism (CMS/HCC),Carot id artery stenosis without cerebral infarction, right,Carotid artery stenosis without cerebral infarction, left Take 1 tablet (80 mg) by mouth at bedtime. 30 tablet 11 07/30/19 24 025 Discontinued ferrous gluconate (Fergon) 324 (37.5 Fe) MG tabletIndicatio ns:Iron deficiency anemia, unspecified TAKE 1 TABLET BY MOUTH DAILY WITH BREAKFAST 90 tablet 1 01/04/20 24 025 Discontinued Active Problems Problem Noted Date Diagnosed Date Head and neck cancer 11/23/2019 02/06/2023 Benign prostatic hyperplasia 06/28/2019 Bipolar disorder 08/01/2015 02/06/2023 Chronic obstructive lung disease 08/01/2015 02/06/2023 Encounters Date Type Department Care Team Description 08/10/2024 Refill [facility] [address] [place] [address] Jorge Wiley MD Cerebrovascular accident (CVA) due to other mechanism (CMS/HCC); Carotid artery stenosis without cerebral infarction, right; Carotid artery stenosis without cerebral infarction, left 07/28/2024 Refill [facility] [address] [place] [address] Jorge Wiley MD Iron deficiency anemia, unspecified from Last 3 Months Immunizations Name Administration [...] 1956 FIT 1956 FOBT 1956 Sigmoidoscopy 1956 Alcohol/Substance Use Screening 1968 DTaP/Tdap/Td Vaccines (1 - Tdap) 09/17/1975 Pneumococcal Vaccine: 50+ Years (1 of 2 - PCV) 09/17/1975 RSV Patients and Patients Aged 60 [...] a test for HCV RNA (test code 24132) is suggested. ?? For additional information please refer to http://Duck[employer].shopp/faq/DLO01g0 (This link is being provided for informational/ [...] ?? Benjamin PARRISH et al. YESI. 2013;310(19): 0221-9287 ?? (http://education.Tapestry.Inventergy/faq/TFQ832) Non-HDL Cholesterol 108 <130 mg/dL (calc) CONVERTED [...] Most Recently Relevant to Health Maintenance [facility] Care Teams Leakage Tester Relationship Specialty Start Date End Date Jorge Wiley MD [address] [place] [address] [place] [address] PCP - General Internal Medicine 08/01/15
--- OUTSIDE RECORDS SUMMARY | 2024-08-23 16:17 | XMS_ITS | Encounter Summary ---
Author Organization [facility] Address [address] [place] [address] Care Team Providers Care Weather Teacher Name Role Phone Jorge Wiley MD Primary Care Provider [phone] Encounter Details Date Type Department Care Team Description 05/25/2020 Nurse Only [facility] Oncology Services [address] [place] [address] Abner Umana RN Social History Tobacco Use [...] on filedocumented in this encounter Care Teams Weather Teacher Relationship Specialty Start Date End Date Jorge Wiley MD [address] [place] [phone] PCP - General Internal Medicine 04/08/22 documented as of this encounter
--- OUTSIDE RECORDS SUMMARY | 2024-08-23 16:17 | XMS_ITS | Data Portability ---
Author Organization [place] [facility] Address [address] [address] Care Team Providers Care Retrimmer Name Role Phone IVÁN TAYLOR Primary Care Provider Assessment Encounter Date Assessment Date Assessment LastModified [...] for bilateral aids. Was also provided with [facility] provider sheet. Follow-up in 6 months for ear cleaning. [email or web address] Not available 01/15/2024 15:04:04 Plan of Treatment Reminders Order Date Submit Date Provider Last Modified By Organization Details Last Modified Time Details Appointments None record ed. Lab None record ed. Referral None record ed. Procedures None record ed. Surgeries None record ed. Imaging None record ed. Medication Orders None record ed. Patient TargetsNo targets recorded. Patient InstructionsNo instructions [...] ation record ed. [email or web address] Not Available 12:45:04 12/17/19 24 11/01/2019 imagi ng/di agnos tic resul t No [...] Recorded Time Impacted cerumen of bilateral ears 54164392759 73172 Active 2019 Impacted cerumen, bilateral ; Note: Date Diagnosed : 12/13/2019 12:30 PM (H61.23) Not Available [facility] 4 02:49:51 Follow-up visit Active 2020 Encounter for follow-up examinati on after completed treatment for malignant neoplasm; Note: Date Diagnosed : 06/21/2020 9:33 AM (Z08) Not Available [facility] 4 02:49:48 Sensorine ural hearing loss of bilateral ears 894431221 Active 2019 Sensorine ural hearing loss, bilateral ; Note: Date Diagnosed : 12/22/2019 4:02 PM (H90.3) Not Available [facility] 4 02:49:49 Malignant tumor of head and neck 332850445 Active 2019 Malignant neoplasm of head, face and neck; Note: Date Diagnosed : 11/30/2019 11:25 AM (C76.0) Not Available [facility] 4 02:49:49 Otorrhea of left ear 60068430337 83916 Active 2022 Otorrhea, left ear; Note: Date Diagnosed : 01/05/2023 3:29 PM (H92.12) Not Available [facility] 4 02:49:50 Nicotine dependenc e 08511327 Active 2020 Tobacco use disorder, moderate; Note: Date Diagnosed : 06/20/2020 9:38 AM (F17.200) Not Available [facility] 4 02:49:45 History of malignant neoplasm of digestive organ 35029085606 883426 Active 2020 Personal history of malignant neoplasm of other digestive organs; Note: Date Diagnosed : 06/20/2020 9:38 AM (Z85.09) Not Available [facility] 4 02:49:47 Mass of neck 301564551 Active 2019 Localized swelling, mass and lump, neck; Note: Date Diagnosed : 11/30/2019 11:25 AM (R22.1) Not Available [facility] 4 02:49:46 Neck swelling 755445219 Active 2019 Localized swelling, mass and lump, neck; Note: Date Diagnosed : 11/30/2019 11:25 AM (R22.1) Not Available [facility] 4 02:49:46 Deviated nasal septum 083227256 Active 2022 Deviated nasal septum; Note: Date Diagnosed : 10/03/2022 1:33 PM (J34.2) Not Available [facility] 4 02:49:44 Stomatiti s 70152279 Active 2020 Oral thrush; Note: Date Diagnosed : 06/20/2020 9:38 AM (B37.0) Not Available [facility] 4 02:49:46 Candidias is of mouth 90081475 Active 2020 Oral thrush; Note: Date Diagnosed : 06/20/2020 9:38 AM (B37.0) Not Available [facility] 4 02:49:46 Impacted cerumen in left ear 03492408030 29668 Active 2023 DALTON QUIÑONEZ PA-C [address], [facility] [place], [address] , [place] - [facility] 4 14:05:38 Disorder of external ear 18351452 Active 2023 DALTON QUIÑONEZ PA-C [address], [facility] [place], [address] , [facility] - [facility] [place] 4 14:06:06 Problem Notes None recorded. Procedures Surgical History Date Name Laterality Status Provider Name and Address Organization Details Recorded Time 4 Comp Audio with Tymps (55025 & 39650) completed CLOTILDE MATHEW [address],[facility], [place], [address], [place] - [facility] 01/15/2024 14:05:04 Debridement of Ear canal left completed DALTON QUIÑONEZ PA-C [facility], [place], [address], [place] - [facility] 01/15/2024 14:04:23 Imaging Results Imaging Date Name [...] mg tablet 2019 active Medicati on ID: 862426 D uration Value: 5 Brand Name: cycloben zaprine Send Method: E-Prescr ibed Sub s Allowed: subs OK Speci al Instruct ion: TAKE 1 TABLET BY MOUTH EVERY 8 HOURS NEEDED FOR MUSCLE SPASM Me dication GenericN jaylon: cycloben zaprine Not Available Not Available Not Available clotrimaz ole 10 mg chandler 1 chandler 2020 active Medicati on ID: 984244 D uration Value: 7 Brand Name: clotrima [...] (81 MG) BY MOUTH IN THE MORNING active Not Available Not Available No t Available tamsulosi n 0.4 mg capsule TAKE 1 CAPSULE BY MOUTH EVERY DAY active Not Available Not Available No t Available lithium carbonate 300 mg capsule TAKE 2 CAPSULES BY MOUTH TWICE A DAY active Not Available Not Available No t Available Banophen 25 mg tablet 2019 active Medicati on ID: 691700 D uration Value: 3 Brand Name: Banophen Send Method: E-Prescr ibed Sub s Allowed: subs OK Speci al Instruct ion: TAKE 2 TABLETS BY MOUTH EVERY 8 HOURS NEEDED FOR SLEEP Me dication GenericN jaylon: Banophen Not Available Not Available Not Available omeprazol e 20 mg capsule,d elayed release 2019 active Medicati on ID: 455057 D uration Value: 30 Brand Name: omeprazo le Send Method: E-Prescr ibed Sub s Allowed: subs OK Speci al Instruct ion: TAKE 1 CAPSULE BY MOUTH TWICE A DAY BEFORE A MEAL Med icationG enericNa me: omeprazo le Not Available Not Available Not Available naproxen 500 mg tablet 2019 active Medicati on ID: 536529 D uration Value: 8 Brand Name: naproxen [...] Updated DateTime 01/15/2024 160.02 cm 18.1 kg/m2 85025.42 g Sia Barksdale [place] - [facility] 01/15/2024 13:21:07 Social History None recorded. Functional Status None recorded. Mental Status None recorded. Family History Nothing Reported. Medical History No medical history recorded. Past Encounters Encounter ID Performer Location Encounter Start Date Encounter Closed Date Diagnosis/Indication Diagnosis SNOMED-CT Code Diagnosis ICD10 Code Diagnosis Note [id number] YOSSI ESPAÑA MD [facility] [address] [place] [address] 01/15/2024 13:09:17 01/15/2024 14:33:31 Impacted cerumen in left ear 7624172868 191229 H61.22 Disorder o f external ear 66485950 H61.92 History of malignant neoplasm of digestive organ 9362398737 6554659 Z85.09 [id number] CLOTILDE MATHEW [facility] of [address] [address] 01/15/2024 14:02:49 01/18/2024 07:06:56 Sensorineural hearing loss of bilateral ears 316835565 H90.3 Audiologic al evaluation results: Right ear: [...] Guarantor Name 01/15/2024 1 [place] [facility] Francisco J Patel [id number] Francisco J Patel 01/15/2024 2 [place] [facility] Francisco J Patel [id number] Francisco J Patel 01/15/2024 1 [place] [facility] Francisco J Patel [id number] Francisco J Patel 01/15/2024 2 [place] [facility] Francisco J Patel [id number] Francisco J Patel Notes Date Note Type [...] hearing is getting worse. YOSSI ESPAÑA MD [address], [address], [place] - [facility] 01/15/2024 16:42:39 01/15/2024 text/html Audiological Evaluation HPIReported bypatient.Hearing loss perceived:hearing loss in both ears: no differences noted between ears Onset:gradual Use of amplification or other hearing devices:none (does not use amplification) CLOTILDE MATHEW [address], [address], [place] - [facility] 01/15/2024 14:11:04
--- OUTSIDE RECORDS SUMMARY | 2024-08-23 16:17 | XMS_ITS | Encounter Summary ---
Author Organization [employer] Address 75 [facility] 7t [place] [address] Care Team Providers Care Ict Developer Name Role Phone Jorge Wiley MD Primary Care Provider Reason for Visit * Reason Onset Date Comments Call Back Request 08/07/2023 Encounter Details Date Type Department Care Team ([facility] Contact Info) Description 08/07/2023 Telephone [facility] MED & PEDS [address] [place] [address] Jorge Wiley MD [address] [place], [place] [phone] Call Back Request Social History Tobacco Use [...] - 08/07/2023 8:42 AM EDT Tc from [facility] with [facility] requesting to speak with a nurse or [place] in regards to labs faxed. States it is urgent. Please contact rocky at [phone] documented in this encounter Plan of Treatment Not on file documented as of this encounter Visit Diagnoses Not on filedocumented in this encounter Additional Health Concerns Assessment Noted Time PHQ-9 Depression Total Score: 3 02/20/20 23 3:12 PM EDT documented as of this encounter Care Teams Ict Developer Relationship Specialty Start Date End Date Jorge Wiley MD [address] [place] [address] LAURENT Bravo [address] PCP - General Internal Medicine 08/01/15 documented as of this encounter
--- OUTSIDE RECORDS SUMMARY | 2024-08-23 16:17 | XMS_ITS | Encounter Summary ---
Author Organization [facility] [employer] Address [address] [place] [address] 7t [place] [address] Care Team Providers Care Clinical Physician Assistant Name Role Phone Jorge Wiley MD Primary Care Provider [phone] Encounter Details Date Type Department Care Team (Late st Contact Info) Description 02/13/2023 Abstract [facility] [employer] [facility] [address] [place], [place] [phone] Jorge Wiley MD [address] [place], [place] [phone] Social History Tobacco Use Types Packs/Day Years [...] on filedocumented in this encounter Care Teams Clinical Physician Assistant Relationship Specialty Start Date End Date Jorge Wiley MD [address] [place] [address] PCP - General Internal Medicine 08/01/15 documented as of this encounter
--- OUTSIDE RECORDS SUMMARY | 2024-08-23 16:17 | XMS_ITS | Encounter Summary ---
Author Organization [employer] Address [address] [facility] [address] 7t [place] [address] Care Team Providers Care Transportation Specialist Name Role Phone Jorge Wiley MD Primary Care Provider Reason for Visit * Reason Onset Date Comments FYI 07/13/2023 Encounter Details Date Type Department Care Team ([facility] st Contact Info) Description 07/13/[address] [facility] MED[facility] [address] [place], [place] [phone] Jorge Wiley MD [address] [place], [place] [phone] FYI Social History Tobacco Use Types Packs/Day [...] documented as of this encounter Care Teams Transportation Specialist Relationship Specialty Start Date End Date Jorge Wiley MD [address] [place] [address] PCP - General Internal Medicine 08/01/15 documented as of this encounter
--- OUTSIDE RECORDS SUMMARY | 2024-08-23 16:17 | XMS_ITS | Encounter Summary ---
Author Organization [employer] Address 75 [facility] 7t [place] [address] Care Team Providers Care Ferryboat Operator Helper Name Role Phone Jorge Wiley MD Primary Care Provider Encounter Details Date Type Department Care Team (Late st Contact Info) Description 01/12/2024 Orders Only [facility] [address] [place], [place] [phone] ProviderRandall MD Social History Tobacco Use Types [...] documented as of this encounter Care Teams Ferryboat Operator Helper Relationship Specialty Start Date End Date Jorge Wiley MD [address] [place] [address] PCP - General Internal Medicine 08/01/15 documented as of this encounter
--- OUTSIDE RECORDS SUMMARY | 2024-08-23 16:17 | XMS_ITS | Encounter Summary ---
Author Organization [employer] Address 75 [facility] 7t [place] [address] Care Team Providers Care Press Service Reader Name Role Phone Jorge Wiley MD Primary Care Provider [phone] Encounter Details Date Type Department Care Team (Late st Contact Info) Description 04/03/2022 Orders Only [facility] MED[facility] 230 [place], [place] [phone] Jorge Wiley MD 505 [place], [place] [phone] Microcytic anemia (Primary Dx) Social History Tobacco [...] anemia documented in this encounter Care Teams Press Service Reader Relationship Specialty Start Date End Date Jorge Wiley MD 505 [place], [place] [phone] PCP - General Internal Medicine 08/01/15 documented as of this encounter
--- OUTSIDE RECORDS SUMMARY | 2024-08-23 16:17 | XMS_ITS | Encounter Summary ---
Author Organization [employer] Address [address] [facility] 7t [place] [address] Care Team Providers Care Enlisted Advisor Name Role Phone Jorge Wiley MD Primary Care Provider Reason for Visit * Reason Comments Med Refill Encounter Details Date Type Department Care Team ([facility] st Contact Info) Description 05/05/2024 Refill [facility] MED & PEDS 505 [place], [place] [phone] Jorge Wiley MD 505 [place], [place] [phone] Iron deficiency anemia, unspecified Social History Tobacco [...] documented as of this encounter Care Teams Enlisted Advisor Relationship Specialty Start Date End Date Jorge Wiley MD [address] [place] [address] PCP - General Internal Medicine 08/01/15 documented as of this encounter
--- OUTSIDE RECORDS SUMMARY | 2024-08-23 16:17 | XMS_ITS | Clinical Summary ---
Author Organization [facility] Address [address] [place] [address] Care Team Providers Care Hand Baseball Sewer Name Role Phone Jorge Wiley MD Primary Care Provider [phone] Allergies No known active allergies Medications Medication [...] age to complete this topic Care Teams Hand Baseball Sewer Relationship Specialty Start Date End Date Jorge Wiley MD [address] [place] [address] PCP - General Internal Medicine 04/08/22
--- OUTSIDE RECORDS SUMMARY | 2024-08-23 16:17 | XMS_ITS | Encounter Summary ---
Author Organization [employer] Address 75 [facility] 7t [place] [address] Care Team Providers Care Reeling Machine Operator Name Role Phone Jorge Wiley MD Primary Care Provider Encounter Details Date Type Department Care Team (Late st Contact Info) Description 02/23/2023 Orders Only [facility] MED & PEDS 505 [place], [place] [phone] Jorge Wiley MD 505 [place], [place] [phone] Benign prostatic hyperplasia with incomplete bladder emptying [...] documented as of this encounter Care Teams Reeling Machine Operator Relationship Specialty Start Date End Date Jorge Wiley MD [address] [place] [address] PCP - General Internal Medicine 08/01/15 documented as of this encounter
--- OUTSIDE RECORDS SUMMARY | 2024-08-23 16:17 | XMS_ITS | Encounter Summary ---
Author Organization [facility] Address [address] [place] [address] Care Team Providers Care Muffler Installer Name Role Phone Jorge Wiley MD Primary Care Provider [phone] Encounter Details Date Type Department Care Team Description 12/12/2019 Nurse Only [facility] Oncology Services [address] [place] [address] Abner Umana RN Social History Tobacco Use [...] Covid test was done on Thursday for [facility] ENT prior to biopsy tomorrow. She stated it will be a hard for the family to redo another Covid test as Mr. 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 Will do a rapid test on day of procedure per IR orders sent to [facility]. documented in this encounter Plan of Treatment Not on file documented as of this encounter Visit Diagnoses Not on filedocumented in this encounter Care Teams Muffler Installer Relationship Specialty Start Date End Date Jorge Wiley MD [address] [place] [address] PCP - General Internal Medicine 04/08/22 documented as of this encounter
== END 2024-08-23 14:03 | disposition home or self-care (01) ==
LOC: HO.HAP 14:02
PROVIDERS: Visit Provider Internal Medicine
DX: Z13.89 Encounter for screening for other disorder (principal)

== ENCOUNTER 2024-09-14 13:45 | Outpatient (REF) | payer MEDICARE, MEDICAID, SELFPAY ==
--- OUTSIDE RECORDS SUMMARY | 2024-09-14 14:17 | XMS_ITS | Encounter Summary ---
Author Organization [employer] Address 75 [facility] 7t [place] [address] Care Team Providers Care Farm Consultant Name Role Phone Jorge Wiley MD Primary Care Provider [phone] Encounter Details Date Type Department Care Team (Late st Contact Info) Description 01/12/2024 Orders Only [facility] [address] [place], [place] [phone] Provider, MD Randall Social History Tobacco Use Types Packs/Day Years [...] EDT) Blood Venous blood specimen / Unknown Historical Provider LAB BLOOD ORDERABLES Judy l Result documented in this encounter Visit Diagnoses Not on filedocumented in this encounter Additional Health Concerns Assessment Noted Time PHQ-9 Depression Total Score: 3 02/20/20 23 3:12 PM EDT documented as of this encounter Care Teams Farm Consultant Relationship Specialty Start Date End Date Jorge Wiley MD [address] [place] [address] PCP - General Internal Medicine 08/01/15 documented as of this encounter
--- OUTSIDE RECORDS SUMMARY | 2024-09-14 14:17 | XMS_ITS | Encounter Summary ---
Author Organization [employer] Address [address] [facility] 7t [place] [address] Care Team Providers Care Pipe Bending Machine Operator Name Role Phone Jorge Wiley MD Primary Care Provider Encounter Details Date Type Department Care Team (Late st Contact Info) Description 04/03/2022 Orders Only [facility] MEDICINE 230 [place], [place] [phone] Jorge Wiley MD 505 [place], [place] [phone] Microcytic anemia (Primary Dx) Social History Tobacco [...] anemia documented in this encounter Care Teams Pipe Bending Machine Operator Relationship Specialty Start Date End Date Jorge Wiley MD 505 [place] [address] PCP - General Internal Medicine 08/01/15 documented as of this encounter
--- OUTSIDE RECORDS SUMMARY | 2024-09-14 14:17 | XMS_ITS | Clinical Summary ---
Author Organization [employer] Address [address] [facility] 7t [place] [address] Care Team Providers Care Solderer Dipper Name Role Phone Jorge Wiley MD Primary Care Provider Allergies No known active allergies Medications loperamide (Imodium) 2 MG capsuleIndicatio ns:Functional diarrhea TAKE 1-2 CAPS BY MOUTH IN MORNING, NOON, EVENING, & BEDTIME NEEDED FOR DIARRHEA FOR UP TO 10 DAYS 30 capsule 3 3 Active acetaminophen (Tylenol) 325 MG tablet TAKE 2 TABS EVERY 4 HOURS NEEDED FOR MILD PAIN OR TEMP GREATER THAN 100.5 MAX 4000MG/DAY 4 Active lithium 300 MG capsule Take 1 capsule by mouth 2 times daily. 4 Active Multiple Vitamins-Mineral s (Multivitamin-Mi nerals) tablet Take 1 tablet by mouth in the morning. 4 Active clopidogrel (Plavix) 75 MG tabletIndication s:Cerebrovascula r accident (CVA) due to other mechanism (CMS/HCC),Caroti d artery stenosis without cerebral infarction, right,Carotid artery stenosis without cerebral infarction, left TAKE 1 TABLET (75 MG) BY MOUTH IN THE MORNING 90 tablet 3 4 Active tamsulosin (Flomax) 0.4 MG 24 hr capsuleIndicatio ns:Dysuria TAKE 1 CAPSULE BY MOUTH EVERY DAY 90 capsule 3 4 Active Aspirin Low Dose 81 MG EC tabletIndication s:Cerebrovascula r accident (CVA) due to other mechanism (CMS/HCC),Caroti d artery stenosis without cerebral infarction, right,Carotid artery stenosis without cerebral infarction, left TAKE 1 TABLET (81 MG) BY MOUTH IN THE MORNING 90 tablet 3 5 Active ferrous gluconate (Fergon) 324 (37.5 Fe) MG tabletIndication s:Iron deficiency anemia, unspecified TAKE 1 TABLET BY MOUTH DAILY WITH BREAKFAST 90 tablet 1 5 Active atorvastatin (Lipitor) 80 MG tabletIndication s:Cerebrovascula r accident (CVA) due to other mechanism (CMS/HCC),Caroti d artery stenosis without cerebral infarction, right,Carotid artery stenosis without cerebral infarction, left TAKE 1 TABLET BY MOUTH AT BEDTIME 90 tablet 3 5 Active Active Problems Problem Noted Date Diagnosed Date Head and neck cancer 11/23/2019 02/06/2023 Benign prostatic hyperplasia 06/28/2019 Bipolar disorder 08/01/2015 02/06/2023 Chronic obstructive lung disease 08/01/2015 02/06/2023 Encounters Date Type Department Care Team Description 08/10/2024 Refill [facility] MED & PEDS [address] [place] [address] Jorge Wiley MD Cerebrovascular accident (CVA) due to other mechanism (CMS/HCC); Carotid artery stenosis without cerebral infarction, right; Carotid artery stenosis without cerebral infarction, left 07/28/2024 Refill [facility] MED & PEDS [address] [place] [address] Jorge Wiley MD Iron deficiency anemia, unspecified from Last 3 Months Immunizations Immunization Administration Dates Next Due Influenza High-dose Quadrivalent [...] season) 2023 10/14/2020 Influenza Vaccine (#1) 2023 3, 03/25/2022, 02/09/2021, Additional history exists Depression Screening 02/20/2024 02/19/2023, 02/20/20 SDOH Screening 02/20/2024 02/19/2023 Tobacco Screening 07/02/2024 [...] patient's age to complete this topic Meningococcal B Vaccine Aged Out No l onger eligible based on patient's age to complete [...] a test for HCV RNA (test code 33838) is suggested. ?? For additional information please refer to http://Lvgou.com.[employer]/faq/ZAZ91n6 (This link is being provided for informational/ [...] ?? LDL-C is now calculated using the Benjamin-Lyon ?? calculation, which is a validated novel method providing ?? better accuracy than the Friedewald equation in the ?? estimation of LDL-C. ?? Benjamin PARRISH et al. YESI. 2013;310(19): 2777-2351 ?? (http://education.[employer]/faq/NVK608) Non-HDL Cholesterol 108 <130 mg/dL (calc) CONVERTED [facility]GAC[facility] Comment: For patients with diabetes plus 1 major ASCVD risk ?? factor, treating to a non-HDL-C goal of <100 mg/dL ?? (LDL-C of <70 mg/dL) is considered a therapeutic ?? option. Triglycerides 81 <150 mg/dL CONVE RTED [facility]GAC[facility] 01/28/2022 9:08 AM EDT Jorge Wiley MD LAB BLOOD ORDERABLES Final Result CONVERTED [facility]GAC[facility] from Last 3 Months or Most Recently Relevant to Health Maintenance Insurance [facility] MEDICARE * Guarantor: Francisco J Patel Account Type Relation to Patient Date of Phone Billing Address Personal/Family Self [address] [facility] [place] Care Teams Solderer Dipper Relationship Specialty Start Date End Date Jorge Wiley MD [address] [place], [place] [address] PCP - General Internal Medicine 08/01/15
--- OUTSIDE RECORDS SUMMARY | 2024-09-14 14:17 | XMS_ITS | Encounter Summary ---
Author Organization [employer] Address [address] [facility] 7t [place] [address] Care Team Providers Care Customer Service Consultant Name Role Phone Jorge Wiley MD Primary Care Provider [phone] Reason for Visit * Reason Comments Med Refill Encounter Details Date Type Department Care Team ([facility] st Contact Info) Description 05/05/2024 Refill [facility] MED & PEDS [address] [place], [place] [phone] Jorge Wiley MD [address] [place], [place] [phone] Iron deficiency anemia, unspecified Social History Tobacco [...] documented as of this encounter Care Teams Customer Service Consultant Relationship Specialty Start Date End Date Jorge Wiley MD [address] [place] [address] PCP - General Internal Medicine 08/01/15 documented as of this encounter
--- OUTSIDE RECORDS SUMMARY | 2024-09-14 14:17 | XMS_ITS | Encounter Summary ---
Author Organization [employer] Address [address] [facility] 7t [place] [address] Care Team Providers Care President Sales And Marketing Name Role Phone Jorge Wiley MD Primary Care Provider Encounter Details Date Type Department Care Team (Late st Contact Info) Description 02/23/2023 Orders Only [facility] MED & PEDS [address] [place], [place] [phone] Jorge Wiley MD [address] [place] [address] Benign prostatic hyperplasia with incomplete bladder emptying [...] documented as of this encounter Care Teams President Sales And Marketing Relationship Specialty Start Date End Date Jorge Wiley MD [address] [place] [address] PCP - General Internal Medicine 08/01/15 documented as of this encounter
--- OUTSIDE RECORDS SUMMARY | 2024-09-14 14:17 | XMS_ITS | Data Portability ---
Author Organization [place] [facility], Allergy Address [address] [address] Care Team Providers Care Abatement Worker Name Role Phone IVÁN TAYLOR Primary Care [...] for bilateral aids. Was also provided with [facility] provider sheet. Follow-up in 6 months for [...] Recorded Time Impacted cerumen of bilateral ears 67577008909 72540 Active 2019 Impacted cerumen, bilateral ; Note: Date Diagnosed : 12/13/2019 12:30 PM (H61.23) Not Available [facility] 4 02:49:51 Follow-up visit Active 2020 Encounter for follow-up examinati on after completed treatment for malignant neoplasm; Note: Date Diagnosed : 06/21/2020 9:33 AM (Z08) Not Available [facility] 4 02:49:48 Sensorine ural hearing loss of bilateral ears 691844539 Active 2019 Sensorine ural hearing loss, bilateral ; Note: Date Diagnosed : 12/22/2019 4:02 PM (H90.3) Not Available [facility] 4 02:49:49 Malignant tumor of head and neck 444007901 Active 2019 Malignant neoplasm of head, face and neck; Note: Date Diagnosed : 11/30/2019 11:25 AM (C76.0) Not Available [facility] 4 02:49:49 Otorrhea of left ear 91053583836 03985 Active 2022 Otorrhea, left ear; Note: Date Diagnosed : 01/05/2023 3:29 PM (H92.12) Not Available [facility] 4 02:49:50 Nicotine dependenc e 15889340 Active 2020 Tobacco use disorder, moderate; Note: Date Diagnosed : 06/20/2020 9:38 AM (F17.200) Not Available [facility] 4 02:49:45 History of malignant neoplasm of digestive organ 02951131632 294863 Active 2020 Personal history of malignant neoplasm of other digestive organs; Note: Date Diagnosed : 06/20/2020 9:38 AM (Z85.09) Not Available [facility] 4 02:49:47 Mass of neck 789946358 Active 2019 Localized swelling, mass and lump, neck; Note: Date Diagnosed : 11/30/2019 11:25 AM (R22.1) Not Available [facility] 4 02:49:46 Neck swelling 501334051 Active 2019 Localized swelling, mass and lump, neck; Note: Date Diagnosed : 11/30/2019 11:25 AM (R22.1) Not Available [facility] 4 02:49:46 Deviated nasal septum 468723489 Active 2022 Deviated nasal septum; Note: Date Diagnosed : 10/03/2022 1:33 PM (J34.2) Not Available [facility] 4 02:49:44 Stomatiti s 12632957 Active 2020 Oral thrush; Note: Date Diagnosed : 06/20/2020 9:38 AM (B37.0) Not Available [facility] 4 02:49:46 Candidias is of mouth 16442440 Active 2020 Oral thrush; Note: Date Diagnosed : 06/20/2020 9:38 AM (B37.0) Not Available [facility] 4 02:49:46 Impacted cerumen in left ear 07263186298 37832 Active 2023 DALTON QUIÑONEZ PA-C [address], [place], [address] , [place] - [facility] 4 14:05:38 Disorder of external ear 82750575 Active 2023 DALTON QUIÑONEZ PA-C [address], [facility] [place], [address] , [place] - [facility] [place] 4 14:06:06 Problem Notes None recorded. Procedures Surgical History Date Name Laterality Status Provider Name and Address Organization Details Recorded Time 4 Comp Audio with Tymps - 11107 & 37923 completed CLOTILDE MATHEW [address], [place], [address], [place] - [facility] 01/15/2024 14:05:04 Debridement of Ear canal left completed DALTON QUIÑONEZ PA-C [address],[facility], [place], [address], [place] - [facility] [place] 01/15/2024 14:04:23 Imaging Results Imaging Date Name [...] mg tablet 2019 active Medicati on ID: 837940 D uration Value: 5 Brand Name: cycloben zaprine Send Method: E-Prescr ibed Sub s Allowed: subs OK Speci al Instruct ion: TAKE 1 TABLET BY MOUTH EVERY 8 HOURS NEEDED FOR MUSCLE SPASM Me dication GenericN jaylon: cycloben zaprine Not Available Not Available Not Available clotrimaz ole 10 mg chandler 1 chandler 2020 active Medicati on ID: 832378 D uration Value: 7 Brand Name: clotrima [...] mg tablet 2019 active Medicati on ID: 469638 D uration Value: 3 Brand Name: Banophen Send Method: E-Prescr ibed Sub s Allowed: subs OK Speci al Instruct ion: TAKE 2 TABLETS BY MOUTH EVERY 8 HOURS NEEDED FOR SLEEP Me dication GenericN jaylon: Banophen Not Available Not Available Not Available omeprazol e 20 mg capsule,d elayed release 2019 active Medicati on ID: 882337 D uration Value: 30 Brand Name: omeprazo le Send Method: E-Prescr ibed Sub s Allowed: subs OK Speci al Instruct ion: TAKE 1 CAPSULE BY MOUTH TWICE A DAY BEFORE A MEAL Med icationG enericNa me: omeprazo le Not Available Not Available Not Available naproxen 500 mg tablet 2019 active Medicati on ID: 460786 D uration Value: 8 Brand Name: naproxen [...] Updated DateTime 01/15/2024 160.02 cm 18.1 kg/m2 11608.42 g Sia Barksdale [place] - [facility] 01/15/2024 13:21:07 Social History None recorded. Functional Status None recorded. Mental Status None recorded. Family History Nothing Reported. Medical History No medical history recorded. Past Encounters Encounter ID Performer Location Encounter Start Date Encounter Closed Date Diagnosis/Indication Diagnosis SNOMED-CT Code Diagnosis ICD10 Code Diagnosis Note [id number] DALTON QUIÑONEZ PA-C [facility] [address] [place] [address] 01/15/2024 13:09:17 01/15/2024 14:33:31 Impacted cerumen in left ear 2043429401 909153 H61.22 Disorder o f external ear 29956587 H61.92 History of malignant neoplasm of digestive organ 0619146888 2281126 Z85.09 [id number] CLOTILDE MATHEW [facility] [address] [place] [address] 01/15/2024 14:02:49 01/18/2024 07:06:56 Sensorineural hearing loss of bilateral ears 080608576 H90.3 Audiologic al evaluation results: Right ear: [...] Recorded Advance Directives Directive None Recorded Payers Insurance Date Sequence Insurance Name Policy Number Policy Fink Covered Member ID Fink Member ID Guarantor Name 07/06/2024 1 MEDICARE B-[place]: [facility] Francisco J Patel [id number] Francisco J Patel 07/06/2024 2 [place] [facility] Francisco J Patel [id number] Francisco J Patel 12/18/2023 1 [place] [facility] Francisco J Patel [id number] Francisco J Patel Notes Date Note Type [...] hearing is getting worse. YOSSI ESPAÑA MD [address] [place] [address], [address], [place] - [facility] 01/15/2024 16:42:39 01/15/2024 text/html Audiological Evaluation HPIReported bypatient.Hearing loss perceived:hearing loss in both ears: no differences noted between ears Onset:gradual Use of amplification or other hearing devices:none (does not use amplification) CLOTILDE MATHEW [address], [address], [facility] - [facility] 01/15/2024 14:11:04
--- OUTSIDE RECORDS SUMMARY | 2024-09-14 14:17 | XMS_ITS | Encounter Summary ---
Author Organization [facility] Address [address] [place] [address] Care Team Providers Care Washer Cutter Name Role Phone Jorge Wiley MD Primary Care Provider [phone] Encounter Details Date Type Department Care Team Description 12/12/2019 Nurse Only [facility] Oncology Services [address] [place] [address] Abner Umana RN Social History Tobacco Use [...] Covid test was done on Thursday for [facility] ENT prior to biopsy tomorrow. She stated it will be a hard for the family to redo another Covid test as Mr. 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 Will do a rapid test on day of procedure per IR orders sent to Per-op. documented in this encounter Plan of Treatment Not on file documented as of this encounter Visit Diagnoses Not on filedocumented in this encounter Care Teams Washer Cutter Relationship Specialty Start Date End Date Jorge Wiley MD [address] [place] [address] PCP - General Internal Medicine 04/08/22 documented as of this encounter
--- OUTSIDE RECORDS SUMMARY | 2024-09-14 14:17 | XMS_ITS | Clinical Summary ---
Author Organization [facility] Address [address] [place] [address] Care Team Providers Care Fur Finisher Name Role Phone Jorge Wiley MD Primary Care Provider [phone] Allergies No known active allergies Medications Medication [...] age to complete this topic Care Teams Fur Finisher Relationship Specialty Start Date End Date Jorge Wiley MD [address] [place] [address] PCP - General Internal Medicine 04/08/22
--- OUTSIDE RECORDS SUMMARY | 2024-09-14 14:17 | XMS_ITS | Encounter Summary ---
Author Organization [employer] Address [address] [facility] 7t [place] [address] Care Team Providers Care Hide And Skin Fleshing Machine Operator Name Role Phone Jorge Wiley MD Primary Care Provider Reason for Visit * Reason Onset Date Comments Call Back Request 08/07/2023 Encounter Details Date Type Department Care Team ([facility] Contact Info) Description 08/07/2023 Telephone C [facility] [address] [place], [place] [phone] Jorge Wiley MD [address] [place], [place] [phone] Call Back Request Social History Tobacco Use [...] - 08/07/2023 8:42 AM EDT Tc from [facility] with [facility] requesting to speak with a nurse or [place] in regards to labs faxed. States it is urgent. Please contact rocky at [phone] documented in this encounter Plan of Treatment Not on file documented as of this encounter Visit Diagnoses Not on filedocumented in this encounter Additional Health Concerns Assessment Noted Time PHQ-9 Depression Total Score: 3 02/20/20 23 3:12 PM EDT documented as of this encounter Care Teams Hide And Skin Fleshing Machine Operator Relationship Specialty Start Date End Date Jorge Wiley MD [address] [place] [address] [place] [address] PCP - General Internal Medicine 08/01/15 documented as of this encounter
--- OUTSIDE RECORDS SUMMARY | 2024-09-14 14:17 | XMS_ITS | Encounter Summary ---
Author Organization [employer] Address [address] [place] [address] 7t [place] [address] Care Team Providers Care Assistant Professor Surgical Technology Name Role Phone Jorge Wiley MD Primary Care Provider Encounter Details Date Type Department Care Team (Late st Contact Info) Description 02/13/2023 Abstract [facility] [address] [place], [place] [phone] Jorge Wiley MD [address] [place], [place] [phone] Social History Tobacco Use Types Packs/Day Years [...] on filedocumented in this encounter Care Teams Assistant Professor Surgical Technology Relationship Specialty Start Date End Date Jorge Wiley MD [address] [place] [address] PCP - General Internal Medicine 08/01/15 documented as of this encounter
--- OUTSIDE RECORDS SUMMARY | 2024-09-14 14:18 | XMS_ITS | Encounter Summary ---
Author Organization [facility] Address [address] [place] [address] Care Team Providers Care Slab Conditioner Supervisor Name Role Phone Jorge Wiley MD Primary Care Provider [phone] Encounter Details Date Type Department Care Team Description 05/25/2020 Nurse Only [facility] Oncology Services [address] [place] [address] Abenr Umana RN Social History Tobacco Use Types [...] on filedocumented in this encounter Care Teams Slab Conditioner Supervisor Relationship Specialty Start Date End Date Jorge Wiley MD [address] [place] [address] PCP - General Internal Medicine 04/08/22 documented as of this encounter
--- OUTSIDE RECORDS SUMMARY | 2024-09-14 14:18 | XMS_ITS | Encounter Summary ---
Author Organization [employer] Address [address] [facility] 7t [place] [address] Care Team Providers Care Plate Worker Name Role Phone Jorge Wiley MD Primary Care Provider Reason for Visit * Reason Onset Date Comments FYI 07/13/2023 Encounter Details Date Type Department Care Team (Late st Contact Info) Description 07/13/2023 Telephone [facility] MEDICINE [address] [place], [place] [phone] Jorge Wiley MD [address] [place], [place] [phone] FYI Social History Tobacco Use Types Packs/Day [...] documented as of this encounter Care Teams Plate Worker Relationship Specialty Start Date End Date Jorge Wiley MD [address] [place] [address] PCP - General Internal Medicine 08/01/15 documented as of this encounter
== END 2024-09-14 13:46 | disposition home or self-care (01) ==
LOC: HO.HAP 13:45
PROVIDERS: Visit Provider Internal Medicine
DX: Z46.1 Encounter for fitting and adjustment of hearing aid (principal); H90.3 Sensorineural hearing loss, bilateral
CPT/HCPCS: V5264